=== PATIENT | male | born 2005 | race American Indian/Alaskan Native ===

== ENCOUNTER 2024-01-30 02:17 | Emergency (ER) | payer OTHER ==
[~2024-01-30] VITALS: Ht 177.8 cm; Wt 104.1 kg
[2024-01-30] MEDS ORDERED: IBUPROFEN 600 MG TAB PO ONE (02:30)
[2024-01-30] MEDS ORDERED: CIPROFLOXACIN 0.3% 5 ML HOME.PACK OPTH ONE ×2 (02:30)
[2024-01-30] MEDS ORDERED: HYDROmorphone HCL 1 MG/ML SYR IV ONE (03:00)
[2024-01-30] MEDS ORDERED: HYDROCODON-ACE1 EA10 PO (03:27)
[2024-01-30] MEDS ORDERED: HYDROCODONE BIT/ACETAMINOPHEN 5/325 MG 1 TAB HOME.PACK PO ONE (03:30)
[2024-01-30 03:43] VITALS: BP 128/84
== END 2024-01-30 03:44 | disposition home or self-care (01) ==
LOC: ED 02:17
DX: S62.325A Displaced fracture of shaft of fourth metacarpal bone, left hand, initial encounter for closed fracture (principal); S62.317A Displaced fracture of base of fifth metacarpal bone, left hand, initial encounter for closed fracture; S05.91XA Unspecified injury of right eye and orbit, initial encounter; Y04.2XXA Assault by strike against or bumped into by another person, initial encounter
CPT/HCPCS: 29125; 73130; 99284-25; A9270

== ENCOUNTER 2024-02-09 07:20 | Day surgery (SDC) | payer BC, OTHER ==
--- NOTE | 2024-02-08 12:51 | NUR ---
PHONE CALL TO [phone]. NUMBER PROVIDED FROM DR OFFICE. PT IS NOT ACCEPTING CALL AT THIS TIME. AND UNABLE TO LEAVE MESSAGE. WILL TRY AGAIN LATER TODAY.
[~2024-02-09] VITALS: Ht 177.8 cm; Wt 105.0 kg
[~2024-02-09 07:20] MED LIST: CEFAZOLIN SODIUM 2 GM/20 ML SYR IV SCH; HYDROCODON-ACE1 EA10 PO; IBLOOD GLUCOSE TEST STRIP 1 EA TEST VI PRN; LACTATED RINGER'S 1,000 ML IV SCH; LIDOCAINE HCL 1% 5 ML SDV INJ ONE
[2024-02-09] MEDS ORDERED: propofoL 200 MG/20 ML VIAL ONE ×2 (07:28→08:40)
[2024-02-09] MEDS ORDERED: MIDAZOLAM HCL 2 MG/2 ML VIAL ONE (07:28)
[2024-02-09] MEDS ORDERED: DEXAMETHASONE SOD PHOS 4 MG/ML VIAL ONE ×2 (07:28→08:41)
[2024-02-09] MEDS ORDERED: Ropivacaine HCl 0.5% 30 ML VIAL ONE (07:28)
[2024-02-09] MEDS ORDERED: LIDOCAINE HCL 2% 20 MG/ML VIAL INJ ONE (07:28)
--- NOTE | 2024-02-09 07:30 | NUR ---
PT NOT AVAILABLE FOR VISIT. PROVIDED PRAYER.
[2024-02-09 07:45] VITALS: BP 137/72
[2024-02-09] MEDS ORDERED: HYDROCODONE/ACETA 5/325 TAB PO PRN (08:30)
[2024-02-09] MEDS ORDERED: ondansetron HCL 4 MG/2 ML VIAL ONE (08:41)
[2024-02-09] MEDS ORDERED: KETOROLAC TROMETHAMINE 30 MG/ML VIAL ONE (08:41)
[2024-02-09] MEDS ORDERED: SEVOFLURANE 250 ML BTL INH ONE (09:10)
[2024-02-09] MEDS ORDERED: PROCHLORPERAZINE EDISYLATE 10 MG/2 ML VIAL IV PRN (09:15)
[2024-02-09] MEDS ORDERED: ondansetron HCL 4 MG/2 ML VIAL IV PRN (09:15)
[2024-02-09] MEDS ORDERED: fentaNYL citrate 50 MCG/ML SDV IV PRN (09:15)
[2024-02-09] MEDS ORDERED: droPERidol 5 MG/2 ML VIAL IV PRN (09:15)
[2024-02-09] MEDS ORDERED: IBLOOD GLUCOSE TEST STRIP 1 EA TEST VI PRN (09:15)
[2024-02-09] MEDS ORDERED: NALOXONE HCL 0.4 MG SYR IV PRN (09:15)
[2024-02-09] MEDS ORDERED: HYDROmorphone HCL 1 MG/ML SYR IV PRN (09:15)
[2024-02-09] MEDS ORDERED: HYDROCODON-ACE1 EA10 PO (09:34)
[2024-02-09 10:15] VITALS: BP 107/62
--- NOTE | 2024-02-09 10:34 | NUR ---
1020: PATIENT BACK IN DAY SURGERY ROOM FROM PACU. DENIES PAIN. VS CHECKED. IV SITE WNL. IV SALINE LOCKED. SCDs ON. PATIENT GIVEN ICE WATER AND PUDDING. CALL LIGHT WITHIN REACH.
--- NOTE | 2024-02-09 10:35 | NUR ---
[facility]09[facility] [facility] AR[facility]IVED IN PACU NON RESPONSIVE TO NOXIOUS STIMULI. JAW THRUST USED TO KEEP AIRWAY OPEN. PT WITH UNCONCIOUS MOVEMENTS OF BILAT ARMS WHILE DOING JAW THRUST. 0940 SWITCHED TO CHIN LIFT AND PT WITHOUT UNCONCIOUS MOVEMENTS. 0955 PT REACTIVE NOXIOUS STIMULI AND OPENED EYES. 1000 EYES OPEN. DENIES PAIN AT THIS TIME. 1005 ICE TO L ARM. 1014 TO DS. REPORT GIVEN TO VALERIE.
[2024-02-09 11:12] VITALS: BP 117/64
--- NOTE | 2024-02-09 11:48 | NUR ---
1045: PATIENT AWAKENED. DISCHARGE INSTRUCTIONS GIVEN TO PATIENT. 1100: PATIENT ASSISTED TO GET DRESSED. LEFT ARM IN SLING. LAYING IN BED WAITING FOR RIDE AND DISCHARGE TIME. 1115: PATIENT DISCHARGED TO HOME VIA WHEELCHAIR WITH FATHER.
--- NOTE | 2024-02-10 07:18 | OR ---
[facility] [address] [place], [place] [address] Signed DATE OF OPERATION: 02/09/2024 SURGEON: Susana Kaur MD PREOPERATIVE DIAGNOSIS: Fourth and fifth metacarpal fractures, displaced. POSTOPERATIVE DIAGNOSIS: Fourth and fifth metacarpal fractures, displaced. PROCEDURE PERFORMED: Open reduction and internal fixation, left 4th metacarpal, closed reduction percutaneous pinning left 5th metacarpal. GAGE MAKER: None. ANESTHESIA: General. BLOOD LOSS: Minimal. IMPLANTS: 2.5 x 40 Synthes headless screw and 1.6 K-wire. BRIEF HISTORY: Scott is a 19-year-old, who injured his hand, fracturing his 4th and 5th metacarpals. On initial radiographs, the 4th was 100% displaced at the midportion, the 5th was nondisplaced proximally. However, when we got him into the operating room and got preop C-arm images, the 5th metacarpal had completely displaced dorsally. We then elected to address that one at the same time. DESCRIPTION OF OPERATION: The patient was placed on the operating room table with a hand table. The arm was prepped and draped in a standard sterile fashion. Initial C-arm views showed the above. We then closed reduced the 5th metacarpal base and pinned it with 1.6 mm K-wire. The 4th metacarpal was then closed reduced with some difficulty. Once we got it appropriately aligned, the guidewire for the 2.5 headless screw was introduced from the head of the metacarpal proximally to the fracture and then with some manipulation was Electronically Signed By: SUSANA KAUR MD 02/10/24 0718 PATIENT NAME: SCOTT DIETZ OPERATIVE REPORT DATE OF : 04 REPORT #: [id number] PHYSICIAN: SUSANA KAUR MD PCP: JENNIFER DUMONT MD REPORT IS CONFIDENTIAL AND NOT TO BE RELEASED WITHOUT AUTHORIZATION [facility] [address] [place], [place] [address] Signed passed across the fracture into the body of the metacarpal proximally. Because his metacarpal was quite narrow, we had to go with 2.5 mm screw and that was limited to 40 length. We drilled and then placed the screw over the guidewire and advanced it until the threads were past the fracture site which did bury the head of the screw a little bit. We had near anatomic reduction and good compression across the fracture, however. The 5th metacarpal was well reduced with the pin. We then cut and bent the pin and cleaned and irrigated the wounds. The distal stab incision for the screw was then closed using Dermabond and Steri-Strips. Both were dressed with Allevyn dressing and an ulnar gutter splint. He tolerated the procedure well. All sponge, needle, and instrument counts were correct. Susana Kaur MD BA/ALLY /[id number] Copies: ~ Electronically Signed By: SUSANA KAUR MD 02/10/24 0718 PATIENT NAME: SCOTT DIETZJUAN ANTONIO OPERATIVE REPORT DATE OF : 04 REPORT #: [id number] PHYSICIAN: SUSANA KAUR MD PCP: JENNIFER DUMONT MD REPORT IS CONFIDENTIAL AND NOT TO BE RELEASED WITHOUT AUTHORIZATION
== END 2024-02-09 11:15 | disposition home or self-care (01) ==
LOC: DS 07:20
PROVIDERS: ATTEND Specialist
PROC: 0PSQ34Z Reposition Left Metacarpal with Internal Fixation Device, Percutaneous Approach (ICD-10-PCS; 2024-02-09)
PROC: 0PSQ04Z Reposition Left Metacarpal with Internal Fixation Device, Open Approach (ICD-10-PCS; principal; 2024-02-09 08:30)
DX: S62.325A Displaced fracture of shaft of fourth metacarpal bone, left hand, initial encounter for closed fracture (principal); S62.327A Displaced fracture of shaft of fifth metacarpal bone, left hand, initial encounter for closed fracture
CPT/HCPCS: 01820; 64417; 73120; C1713; J0690; J1100; J1885; J2250; J2405; J2704; J2795; J7121